=== PATIENT | female | born 1940 | race Caucasian/White ===

== ENCOUNTER → 2016-10-31 | Outpatient (CLI) | payer MEDICARE ==
[~2016-10-31] MED LIST: ANASTROZOLE1 MG PO; ARIMIDEX1 MG PO; BENTYL10 M1 PO; BENTYL10 MG PO; CALCIUM 600 +1 EAC2 PO; COUMADIN PO; COUMADIN1 MG PO; COUMADIN3 MG PO; FIBERCON625 MG PO; GLUCOSAMINE-CH1 EA13 PO; JANTOVEN2 MG PO; LAMICTAL25 MG PO; LASIX20 MG PO; LOMOTIL TABLET1 TAB PO; LORTAB 7.5-3251 EACH PO; METOPROLOL TAR25 MG PO; METOPROLOL TART25 MG PO; MIRTAZAPINE7.5 MG PO; NABUMETONE500 M1 PO; NAMENDA5 MG PO; OMEPRAZOLE20 M1 PO; OMEPRAZOLE20 M2 PO; OMEPRAZOLE40 M1 PO; PHENERGAN25 M1 PO; PRAVACHOL20 MG PO; PRAVASTATIN SOD40 MG PO
--- NOTE | ~2016-10-31 | MY6 ---
[facility] A Service of [facility] / [facility] RADIOLOGY TEXT RESULTS PATIENT: HARSHAD CORONEL LOCATION: [facility] : 38 UNIT #: [id number] AGE: [address]: Jose De Jesus Vivas MD SEX: F ORDER DR: [id number] [facility] [address] [place], [place] [address] [id number] MR#: [id number] Acc #: [id number] NAME: HARSHAD CORONEL. : 1940 SEX: F STUDY DATE/TIME: 10/31/2016 13:06 UNIT: [facility] ROOM: STUDY DESCRIPTION: MY Mammogram Dx Dig Liang Attending Physician: Jose De Jesus Vivas M.D. Referring Physician: Jose De Jesus Vivas M.D. Ordering Physician: Jose De Jesus Vivas M.D. Primary Care Physician: Jose De Jesus Vivas M.D. MEDICAL IMAGING REPORT This report is preliminary unless electronic signature is present EXAM Bilateral digital diagnostic mammogram with CAD. DATE 10/31/2016 HISTORY 76-year-old female with history of left breast cancer, lumpectomy in 2016 and radiation therapy. No current complaints. COMPARISON Left breast diagnostic mammogram and ultrasound 09/12/2015. Bilateral digital diagnostic mammogram 11/25/2014. FINDINGS CC and MLO views were obtained of each breast and true ML views of the left breast. The study was performed utilizing digital technique and reviewed with an FDA-approved CAD device. Scattered fibroglandular densities are present bilaterally. There is volume loss in the left breast with increased density along the inferior hemisphere left breast and overlying skin thickening, consistent with post lumpectomy and radiation change. The density within the left breast, however, has significantly diminished since the 09/12/2015 examination, likely representing resolved postoperative seroma, which was documented on the previous 09/12/2015 ultrasound. Certainly, no definite new nodule is seen. Scattered fibroglandular densities are present bilaterally. No suspicious cluster of microcalcification is demonstrated on either side. Benign appearing intramammary lymph node in the posterior superior right breast in the MLO view is unchanged from prior exam. Of note, the technologist documents that these are the best films STS. [facility] A Service of [facility] / [facility] RADIOLOGY TEXT RESULTS PATIENT: HARSHAD CORONEL LOCATION: [facility] : 38 UNIT #: [id number] AGE: [address]: Jose De Jesus Vivas MD SEX: F ORDER DR: obtainable, as the patient has appears that dimension, and could not get her head or shoulder out of view on some images. Her had to assist her for the images. IMPRESSION Post lumpectomy and radiation therapy changes in the left breast. No features suspicious for recurrent malignancy on today's examination. Routine bilateral screening mammogram recommended in year. Findings and recommendations were discussed with the patient in the presence of her today in the radiology department. Patient's over the age of 40 are entered into a reminder system with target due date for the next mammogram. A result letter will be sent to the patient. BIRADS: 2 Benign findings. Dictated by... Svitlana Solis M.D. THIS IS AN ELECTRONICALLY VERIFIED REPORT Svitlana Solis M.D. at 11/01/2016 2:23 PM [facility]/damari TD: 10/31/2016 15:46 JOB #: [id number] MEDICAL IMAGING REPORT Page 1 of 1 COPY
== END | disposition home or self-care (01) ==
LOC: CMAM 12:49
DX: C50.912 Malignant neoplasm of unspecified site of left female breast (principal)
CPT/HCPCS: G0204